=== PATIENT | female | born 1980 | race Hispanic/Latino ===

== ENCOUNTER 2016-12-19 00:07 | Observation (INO) | payer SELFPAY ==
[2016-12-19 00:31] VITALS: BP 129/95; PULSE 76; RESP 16; TEMP 98.3; O2SAT 98
--- NOTE | 2016-12-19 00:55 | ED PDOC ---
HPI: Psych/Substance Abuse Time Seen by Provider: 12/19/16 00:09 Chief Complaint (Nursing): Alcohol Ingestion Chief Complaint (Provider): intoxication ED Caveat: Intoxicated History Per: EMS History/Exam Limitations: intoxication Onset/Duration Of Symptoms: Unknown Current Symptoms Are (Timing): Still Present Modifying Factor(s): Alcohol Severity: Moderate Past Medical History Reviewed: Historical Data, Nursing Documentation, Vital Signs Vital Signs: Last Vital Signs Temp 98.3 F 12/19/16 00:28 Pulse 76 12/19/16 00:28 Resp 16 12/19/16 00:28 BP 129/95 H 12/19/16 00:28 Pulse Ox 98 12/19/16 00:28 - Medical History PMH: No Chronic Diseases - Surgical History Surgical History: No Surg Hx - Family History Family History: States: No Known Family Hx - Living Arrangements Living Arrangements: With Family - Social History Current smoker - smoking cessation education provided: No Ex-Smoker (has not smoked in the last 12 months): No Alcohol: Occasional Drugs: Denies - Allergies Allergies/Adverse Reactions: Allergies Allergy/AdvReac Type Severity Reaction Status Date / Time diphenhydramine HCl Allergy RASH Verified 12/19/16 00:30 [From Benadryl] Review of Systems Review Of Systems: ROS cannot be obtained secondary to pt's inabilty to answer questions. Physical Exam - Reviewed Nursing Documentation Reviewed: Yes Vital Signs Reviewed: Yes - Physical Exam Appears: Positive for: Non-toxic Head Exam: Positive for: ATRAUMATIC, NORMOCEPHALIC Skin: Positive for: Normal Color, Warm, Dry Eye Exam: Positive for: Normal appearance, EOMI, PERRL ENT: Positive for: Normal ENT Inspection Neck: Positive for: Normal, Painless ROM, Supple Cardiovascular/Chest: Positive for: Regular Rate, Rhythm Respiratory: Positive for: Normal Breath Sounds. Negative for: Crackles, Rales , Wheezing Gastrointestinal/Abdominal: Positive for: Normal Exam, Bowel Sounds, Soft. Negative for: Tenderness Back: Positive for: Normal Inspection. Negative for: L CVA Tenderness, R CVA Tenderness Neurologic/Psych: Positive for: Mood/Affect (flat), Other (speech is slurred andgait is unsteady). Negative for: Alert, Motor/Sensory Deficits - Laboratory Results Result Diagrams: 12/19/16 01:21 12/19/16 01:21 - ECG O2 Sat by Pulse Oximetry: 98 Medical Decision Making Medical Decision Makin yo intoxicated female Labs ordered Labs reviewed show no clinically significant abnormality with exception of UDS indicative of polysubstance abuse At 5:30 AM pt AAO x3 and has steady gait with clear speech Dx Polysubstance Abuse Stable Disposition - Clinical Impression Clinical Impression: Polysubstance abuse - Disposition Disposition: Routine/Home Disposition Time: 02:00 Condition: STABLE
[2016-12-19 01:37] LABS: BASO # 0.1 K/uL (0.0-0.2); BASO % 0.5 % (0.0-2.0); EOS # 0.1 K/uL (0.0-0.7); EOS % 1.5 % (0.0-4.0); HEMATOCRIT 45.2 % (34.0-47.0); LYMPH # 2.6 K/uL (1.0-4.3); MEAN CELL VOLUME 95.7 fl (81.0-99.0); MEAN CORPUSCULAR HEMOGLOBIN 32.2 pg (27.0-31.0); MEAN CORPUSCULAR HGB CONC 33.7 g/dL (33.0-37.0); MEAN PLATELET VOLUME 7.7 fl (7.2-11.7); MONO % 9.7 % (0.0-10.0); NEUT # 6.2 K/uL (1.8-7.0); NEUT % 62.3 % (50.0-75.0); NRBC % 0.1 % (0.0-0.0)
[2016-12-19 01:51] LABS: ALB/GLOB RATIO 1.4 (1.0-2.1); ALCOHOL SERUM < 10 mg/dl (0-10); ALKALINE PHOSPHATASE 68 U/L (38-126); ALT/SGPT 29 U/L (9-52); AST/SGOT 21 U/L (14-36); BILIRUBIN,TOTAL 0.3 mg/dl (0.2-1.3); BLOOD UREA NITROGEN 13 mg/dl (7-17); CALCIUM 9.8 mg/dL (8.4-10.2); CARBON DIOXIDE 27 mmol/L (22-30); CHLORIDE 106 mmol/L (98-107); GFR AFRICAN-AMERICAN > 60; GLUCOSE,RANDOM 96 mg/dL (65-105); POTASSIUM 4.1 MMOL/L (3.6-5.0); SODIUM 140 mmol/l (132-148); TOTAL PROTEIN 8.4 G/DL (6.3-8.2)
== END 2016-12-19 05:39 | disposition home or self-care (01) ==
LOC: H.ER 00:07 → H.EROBSV 02:00
PROVIDERS: ADMIT Emergency Medicine; ATTEND Emergency Medicine
DX: F19.129 Other psychoactive substance abuse with intoxication, unspecified (principal); F10.10 Alcohol abuse, uncomplicated
CPT/HCPCS: 80053; 81025; 82948; 85025; 99282; G0378; G0480